=== PATIENT | female | born 1935 | race Caucasian/White ===

== ENCOUNTER → 2024-02-29 13:50 | Outpatient (REF) | payer MEDICARE, OTHER, SELFPAY | LOC: DHVS 13:50 | PROVIDERS: ATTENDING PHYSICIAN Surgery Vascular Surgery; FAMILY PHYSICIAN Family Medicine | DX: I73.9 Peripheral vascular disease, unspecified (principal) | CPT/HCPCS: 93922; 93925 ==

== ENCOUNTER 2024-06-25 21:17 | Inpatient (IN) | payer MEDICARE, OTHER, SELFPAY ==
[2024-06-25] VITALS (7 sets, daily range): BP systolic 119–164; BP diastolic 55–70; BMI 18.5; BMI 15.5
--- NOTE | 2024-06-25 16:51 | ED.GENMED ---
History of Present Illness
<THAO Kirby Last Filed: 06/25/24 22:13>
General
Chief Complaint: Fall
Source: patient
Exam Limitations: none
Time Seen by Provider: 06/25/24 16:51
Nursing documentation reviewed up to this point in time: agreed with
History of Present Illness
History of Present Illness:
This is a 89-year-old female with a history of DVT on Eliquis, hypertension, hyperlipidemia, hypothyroidism presenting emergency department today with concerns of right hip pain with weightbearing following a fall. She also complains of right flank
pain. Patient states that she was in her own space and uses a walker at baseline. Patient states that she was trying to wean herself off of her walker but when attempting this, she tripped and fell onto her right side. Patient states that she did
not hit her head when she fell. Patient denies any loss of consciousness, headache, head trauma, neck pain, dizziness, lightheadedness. Patient [place] any neck pain. Patient states that she tried getting up on her own but noticed pain in her right
hip when bearing weight. 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 Patient had this amputation because of an infection of the lower extremity in
the past. Patient has no history of diabetes.
Past History
<THAO Kirby Last Filed: 06/25/24 22:13>
Past History
ED Past Medical History: HTN, Hypothyroidism, Psychiatric (Anxiety, Depression) and Other (Migraine, DVT, acute arterial occlusion, peripheral vascular disease)
ED Past Surgical History: Other (Left Thrombectomy, Right arteriogram)
Social History
Tobacco: Former smoker
Alcohol: Daily (wine 1 glass)
Personal:
Living: with family
Review of Systems
<THAO Kirby Last Filed: 06/25/24 22:13>
Review of Systems
All Other Systems: ROS reviewed and negative except as documented in HPI and ROS
Phy Exam
<Ilda Pina PA-C - Last Filed: 06/25/24 22:13>
Physical Exam
Physical Exam:
General: Patient is well appearing and in no acute distress; non-toxic
Skin: Warm and dry, no rashes or lesions
Head: Normocephalic, atraumatic. No palpable hematoma of the scalp. No tenderness to palpation of the facial bones, TMJ joints intact bilaterally.
Eyes: Sclera non-icteric. EOMs intact. PERRLA. No entrapment.
Neck: Patient seen spontaneously moving cervical spine. No bony tenderness to palpation of the cervical spine.
Cardiac: Regular rate and rhythm, no murmurs. No tenderness to palpation of the external chest wall.
Peripheral Vascular: No lower extremity swelling or edema.
Pulm: Normal respiratory effort, no wheezes, rales, or rhonchi
Abdomen: No abdominal tenderness to palpation. No areas of ecchymosis or signs of trauma. No CVA tenderness bilaterally.
Musculoskeletal: No hip pain with passive range of motion. No tenderness to palpation of the right hip.
Neuro: CN II-XII intact, no focal neurologic deficits.
Psychiatric: Appropriate mood and affect.
Course
<Ilda Pina PA-C - Last Filed: 06/25/24 22:13>
Orders/Labs/Results
Orders:
Orders
06/25/24 17:25
CT Abd/pel W Iv Cont (trauma) Urgent
Comment:
Reason For Exam: right sided flank pain, hip pain following fall el
06/25/24 17:38
Basic Metabolic Panel Urgent
Complete Blood Count/With Diff Urgent
PTT Urgent
Prothrombin Time Urgent
06/25/24 17:57
Comprehensive Metabolic Panel Urgent
06/25/24 18:24
Acetaminophen [Tylenol] 650 mg PO NOW STA
06/25/24 19:33
CR Femur - Right Min 2 Vw Urgent
Comment:
Reason For Exam: right proximal femur pain
06/25/24 20:41
Prothrombin Complex(Pcc),Human [Kcentra] 1,063 unit Empty Viaflex Container 100 ml [Viaflex Empty Container] 40 ml IV NOW
Does patient have a dx of serious acute active bleeding?: Yes
Does patient have prior history of HIT?: No
06/25/24 20:55
Admit/Transfer Patient As Directed
Co-Sign Provider:
Level of Care: Inpatient admission
Assign to:: Medical/Surgical
Physician / Group: [facility]
Diagnosis: fall
Reason for Hospitalization: superolateral right gluteus medius muscle
Expected length of stay greater than two midnights?: Yes
ELOS- Estimated Length of Stay in days: 4
I certify the patient meets the requirements for IP care: Yes
PRN Pain Medication Management As Directed
May give lesser potent ordered pain med per pt: Yes
preference::
Protocol:: Medication orders for pain may be administered in a
manner that supports deferring to patient preference
when the pt is:
- Requesting an ordered lesser potent pain medication.
Least to most potent pain medications are defined
as: acetaminophen < NSAID < tramadol < opioids
(morphine, oxycodone, hydromorphone).
- Requesting a lesser dose of the same medication IF
ORDERED.
- Requesting a less intrusive route of administration
if both routes are prescribed by the provider (PO <
IV).
06/25/24 20:57
Code Status As Directed
Resuscitation Status: Full Code
Abnormal Lab Results
06/25/24 06/25/24
17:38 17:57
RBC 3.92 L 10^6/uL
(4.20-5.40)
MCH 32.9 H pg
(27.0-31.0)
MPV 10.9 H fL
(7.4-10.4)
Abs Immat Gran (auto) 0.1 H 10^3/uL
(0-0.05)
Absolute Neuts (auto) 7.7 H 10^3/uL
(1.4-6.5)
Immature Gran % 1.1 H %
(0-0.5)
Neutrophils % 78.9 H %
(42.2-75.2)
Lymphocytes % 13.2 L %
(20.5-51.1)
PT 15.0 H Sec
(11.4-14.6)
APTT 22.3 L Sec
(23.4-35.0)
BUN 21 H mg/dl 20 H mg/dl
(7-17) (7-17)
Glucose 118 H mg/dl 106 H mg/dl
(70-99) (70-99)
ALT 38 H U/L
(0-35)
Total Protein 5.9 L g/dl
(6.3-8.2)
06/25/24 17:38
06/25/24 17:57
Vital Signs
Initial and Last Documented VS:
Initial Vital Signs
Pulse Ox
97
06/25/24 16:56
Last Documented Vital Signs
Temp Pulse Resp BP Pulse Ox
98.5 F 74 23 144/63 96
06/25/24 16:59 06/25/24 21:45 06/25/24 21:45 06/25/24 21:00 06/25/24 21:45
<Keith Warner MD - Last Filed: 06/25/24 22:16>
Orders/Labs/Results
Orders:
Orders
06/25/24 17:25
CT Abd/pel W Iv Cont (trauma) Urgent
Comment:
Reason For Exam: right sided flank pain, hip pain following fall el
06/25/24 17:38
Basic Metabolic Panel Urgent
Complete Blood Count/With Diff Urgent
PTT Urgent
Prothrombin Time Urgent
06/25/24 17:57
Comprehensive Metabolic Panel Urgent
06/25/24 18:24
Acetaminophen [Tylenol] 650 mg PO NOW STA
06/25/24 19:33
CR Femur - Right Min 2 Vw Urgent
Comment:
Reason For Exam: right proximal femur pain
06/25/24 20:41
Prothrombin Complex(Pcc),Human [Kcentra] 1,063 unit Empty Viaflex Container 100 ml [Viaflex Empty Container] 40 ml IV NOW
Does patient have a dx of serious acute active bleeding?: Yes
Does patient have prior history of HIT?: No
06/25/24 20:55
Admit/Transfer Patient As Directed
Co-Sign Provider:
Level of Care: Inpatient admission
Assign to:: Medical/Surgical
Physician / Group: [facility]
Diagnosis: fall
Reason for Hospitalization: superolateral right gluteus medius muscle
Expected length of stay greater than two midnights?: Yes
ELOS- Estimated Length of Stay in days: 4
I certify the patient meets the requirements for IP care: Yes
PRN Pain Medication Management As Directed
May give lesser potent ordered pain med per pt: Yes
preference::
Protocol:: Medication orders for pain may be administered in a
manner that supports deferring to patient preference
when the pt is:
- Requesting an ordered lesser potent pain medication.
Least to most potent pain medications are defined
as: acetaminophen < NSAID < tramadol < opioids
(morphine, oxycodone, hydromorphone).
- Requesting a lesser dose of the same medication IF
ORDERED.
- Requesting a less intrusive route of administration
if both routes are prescribed by the provider (PO <
IV).
06/25/24 20:57
Code Status As Directed
Resuscitation Status: Full Code
Abnormal Lab Results
06/25/24 06/25/24
17:38 17:57
RBC 3.92 L 10^6/uL
(4.20-5.40)
MCH 32.9 H pg
(27.0-31.0)
MPV 10.9 H fL
(7.4-10.4)
Abs Immat Gran (auto) 0.1 H 10^3/uL
(0-0.05)
Absolute Neuts (auto) 7.7 H 10^3/uL
(1.4-6.5)
Immature Gran % 1.1 H %
(0-0.5)
Neutrophils % 78.9 H %
(42.2-75.2)
Lymphocytes % 13.2 L %
(20.5-51.1)
PT 15.0 H Sec
(11.4-14.6)
APTT 22.3 L Sec
(23.4-35.0)
BUN 21 H mg/dl 20 H mg/dl
(7-17) (7-17)
Glucose 118 H mg/dl 106 H mg/dl
(70-99) (70-99)
ALT 38 H U/L
(0-35)
Total Protein 5.9 L g/dl
(6.3-8.2)
06/25/24 17:38
06/25/24 17:57
Vital Signs
Initial and Last Documented VS:
Initial Vital Signs
Pulse Ox
97
06/25/24 16:56
Last Documented Vital Signs
Temp Pulse Resp BP Pulse Ox
98.5 F 74 23 144/63 96
06/25/24 16:59 06/25/24 21:45 06/25/24 21:45 06/25/24 21:00 06/25/24 21:45
<Ilda Pina PA-C - Last Filed: 06/25/24 22:13>
MDM/Problems Addressed
Differential Diagnosis Includes:
ddx include hip fracture, hip contusion, retroperitoneal hematoma, musculoskeletal sprain/strain
MDM/Problems Addressed:
Hip pain following fall:
This is a 89-year-old female with a history of DVT on Eliquis, hypertension, hyperlipidemia, hypothyroidism presenting emergency department today with concerns of right hip pain with weightbearing following a fall. She also complains of right flank
pain. Patient states that she was in her own space and uses a walker at baseline. Patient states that she was trying to wean herself off of her walker but when attempting this, she tripped and fell onto her right side.
Patient is well appearing on exam, no acute distress. No signs of head trauma. She has no tenderness to palpation of the cervical spine, non-focal neurologic exam. CT of the abdomen/pelvis reveals focal area of active bleeding involving the
superolateral right gluteus medius muscle. Discussed findings with interventional radiology and vascular surgery. Based on IR recommendations, will hold Eliquis no indication for IR intervention at this time. Patient will be admitted for further
care and workup. Patient in agreement with plan.
Chronic conditions affecting care:
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
<Ilda Pina PA-C - Last Filed: 06/25/24 22:13>
*Pulse Oximetry
Patient hypoxic: no
*Critical Care Note
Total Time (30-74mins, 75-104mins- exclusive of procedures): Not Applicable
Data Reviewed
Review of Other/Old Records Reveals: Records (reviewed ER physician documentation from 09/07/23 where patient was seen for an orbital blow out fracture) and Discharge Summary (reviewed discharge summary from 06/10/23)
Source: patient and records
Prescriptions/Medications Considered But Not Given:
Patient denying medication for pain at this time
<Ilda Pina PA-C - Last Filed: 06/25/24 22:13>
Patient Management
Escalation/DeEscalation of care consider admission/obs:
Patient referred for admission. Case and treatment plan reviewed with my attending Dr. Warner.
ED Attending Note
<Ilda Pina PA-C - Last Filed: 06/25/24 22:13>
-
Portions of this chart may have been created with voice recognition software.� Occasional wrong word or��sound alike� substitutions may have occurred due to the inherent limitations of voice recognition software.
<Keith Warner MD - Last Filed: 06/25/24 22:16>
ED Attending Note
ED Attending Note:
I saw and evaluated patient independently. Patient had a mechanical fall causing severe right lower back and gluteal pain. She is well-appearing on exam and demonstrates no signs of hemorrhagic shock. CT scan with active gluteal bleed noted. She
has an nonexpanding hematoma that is on her right buttock. She is on Eliquis for a remote DVT 20 years ago. Last dose was this morning around 8 AM. Given active hemorrhage seen on CT scan, will reverse her Eliquis with 4 factor PCC. IR consulted
who agreed with plan.
Discharge Plan
Departure
Patient Disposition: Admit
Date of Disposition: 06/25/24
Time of Disposition: 20:26
Admit to: Med/Surg
Presentation/result/management discussed w/ accepting MD/DO: Hospitalist
Patient with high blood pressure during this ER visit?: No
Condition: Fair
Discharge Problem:
Traumatic hemorrhage, Fall
Interventions
Interventions:
*Risk Screen - Suicide Last Done: 06/25/24 17:19
*General Assessment Last Done: 06/25/24 17:19
*Neglect/Abuse Screening Last Done: 06/25/24 17:19
ED- Fall Risk Assessment Last Done: 06/25/24 17:22
*ED COVID-19 Vaccine History Last Done: 06/25/24 17:19
*Nursing Disposition Last Done: 06/25/24 22:00
ED-Musculoskeletal Assessment Last Done: 06/25/24 17:22
ED- Neurological Assessment Last Done: 06/25/24 17:22
ED-Skin Assessment Last Done: 06/25/24 17:22
Discharge Date and Time
Discharge Date/Time: 06/25/24 22:01
[2024-06-25 17:46] LABS: % Basophils 0.3 % (0-2); % Eosinophils 0.1 % (0-6); % Immature Granulocytes 1.1 % (0-0.5); % Lymphocytes 13.2 % (20.5-51.1); % Monocytes 6.4 % (1.7-9.3); % Neutrophils 78.9 % (42.2-75.2); Absolute Immature Granulocytes 0.1 10^3/uL (0-0.05); Absolute Lymphocytes 1.3 10^3/uL (1.2-3.4); Absolute Monocytes 0.6 10^3/uL (0.1-0.6); Absolute Neutrophils 7.7 10^3/uL (1.4-6.5); Hematocrit 37.5 % (37.0-47.0); Hemoglobin 12.9 g/dL (12.0-16.0); Mean Corp Hgb Conc. 34.4 g/dL (33.0-37.0); Mean Corpuscular Hgb 32.9 pg (27.0-31.0); Mean Corpuscular Volume 95.7 fL (81.0-99.0); Mean Platelet Volume 10.9 fL (7.4-10.4); Nucleated Red Blood Cells % 0 %; Platelet Count 249 10^3/uL (130-400); Red Blood Cell Count 3.92 10^6/uL (4.20-5.40); Red Cell Dist. Width 12.8 % (11.5-14.5); White Blood Cell Count 9.7 10^3/uL (4.8-10.8)
[2024-06-25 17:58] LABS: APTT 22.3 Sec (23.4-35.0)
[2024-06-25 18:06] LABS: Blood Urea Nitrogen 21 mg/dl (7-17); Calcium 9.9 mg/dl (8.4-10.2); Carbon Dioxide 26 mmol/L (22-30); Chloride 105 mmol/L (98-107); Estimated Creatinine Clearance 38 ml/min; Glucose 118 mg/dl (70-99); Sodium 141 mmol/L (135-145); eGFR > 60.00
[2024-06-25 18:21] LABS: ALT (SGPT) 38 U/L (0-35); AST (SGOT) 28 U/L (14-36); Albumin 3.8 g/dl (3.5-5.0); Alkaline Phosphatase 72 U/L (38-126); Blood Urea Nitrogen 20 mg/dl (7-17); Calcium 9.6 mg/dl (8.4-10.2); Carbon Dioxide 28 mmol/L (22-30); Chloride 106 mmol/L (98-107); Estimated Creatinine Clearance 45 ml/min; Glucose 106 mg/dl (70-99); Potassium 3.7 mmol/L (3.5-5.1); Sodium 141 mmol/L (135-145); Total Bilirubin 0.5 mg/dl (0.2-1.3); Total Protein 5.9 g/dl (6.3-8.2); eGFR > 60.00
[2024-06-25] MEDS: TYLENOL 650 MG PO (18:32)
--- NOTE | 2024-06-25 20:38 | HPS.HSE ---
Family Physician
-
Family Physician: Minh Mcallister
Chief Complaint
-
Mechanical fall and pain in the right lower quadrant area
History of Present Illness
Pleasant 89-year-old female who lives independently alone with known history of hypertension, right below knee amputation: Using prosthesis, presented to the hospital after had a mechanical fall earlier today at home, admitted lately she has been
using walker with a prosthesis and look like she lost balance today and fell to the ground hitting the right side, did not any symptomatic dizziness or palpitation or syncope prior to the fall, denies any weakness or numbness in extremities,
Denies hitting his head to the ground.
Admits she has been taking blood thinner for 30-year for history of DVT currently on Eliquis.
In the ER workup showed no fracture or dislocation of the right hip area including an x-ray and CT abdominal pelvis which showed superolateral right gluteus medius muscle, ER physician they spoke to IR and vascular surgery recommended against of any
intervention like embolization while they recommend reversing Eliquis, Kcentra already ordered.
Patient awake, alert and oriented and can hold appropriate conversation.
Medical History
Past Medical History
Past Medical History: Reports Other
Additional Past Medical History:
Past medical history reviewed:
Hypertension
Mood disorder
History of DVT and PE and anticoagulation for 30 years
Peripheral vascular disease status post right below-knee amputation
Mood disorder
ORIF right femoral neck
Social history: Lives alone at home denies smoking or alcohol use.
Family history: Reviewed and noncontributory
Past Surgical History: Reports Other
Social History
Unable to obtain full social history at this time due to: Other
Family History
Family History: Other
Allergies / Home Medications
Allergies reflects when Allergies were last updated in [facility].
Home Medications with original date entered in [employer]
Allergy/Medication List:
Allergies
Allergy/AdvReac Type Severity Reaction Status Date / Time
No Known Allergies Allergy Verified 09/07/23 09:06
Home Medications
aspirin 81 mg capsule 81 mg PO HS Blood clot prevention/tx 08/26/22
benazepril 40 mg tablet 40 mg PO DAILY Blood pressure 08/26/22
bupropion HCl 150 mg 24 hr tablet, extended release 150 mg PO DAILY Mental Health/Anxiety 08/26/22
cholecalciferol (vitamin D3) 25 mcg (1,000 unit) tablet (Vitamin D3) 25 mcg PO DAILY Supplement 08/26/22
coQ10 (ubiquinol) 100 mg capsule 500 mg PO DAILY Supplement 08/26/22
apixaban 5 mg tablet (Eliquis) 5 mg PO BID Blood Clot Prevention/Tx 10/03/22
calcium carbonate (Oyster Shell Calcium 500) 500 mg PO DAILY #1 tab 10/03/22
escitalopram oxalate 20 mg tablet 20 mg PO DAILY Mental Health/Anxiety #30 tabs 10/15/22
ferrous sulfate 325 mg (65 mg iron) tablet 325 mg PO DAILY #30 tabs 10/15/22
amlodipine 10 mg tablet 10 mg PO DAILY Blood Pressure 06/07/23
ascorbic acid (vitamin C) 500 mg tablet (Vitamin C) 500 mg PO DAILY Supplement 06/07/23
buspirone 5 mg tablet 20 mg PO BID Depression 06/07/23
omega 2-enx-vnc-fish oil 1,000 mg (120 mg-180 mg) capsule (Fish Oil) 1 cap PO DAILY High Cholesterol 06/07/23
prednisone 1 mg tablet 2 mg PO DAILY Anti-Inflammatory 06/07/23
prednisone 5 mg tablet 10 mg PO DAILY Anti-Inflammatory 06/07/23
vitamins A,C,G-giwz-lmtpfu 2,148 mcg-113 mg-45 mg-17.4 mg tablet (PreserVision AREDS) 1 tab PO BID Supplement 06/07/23
oxycodone 5 mg tablet 5 mg PO Q4HPRN PRN severe pain #15 tabs 06/09/23
amoxicillin 875 mg-potassium clavulanate 125 mg tablet 1 tab PO BID #14 tabs 09/07/23
Review of Systems
-
A 12 point ROS was completed and negative except as noted: Yes
Physical Exam
Vital Signs
Vital Signs
Temp Pulse Resp BP Pulse Ox
98.5 F 84 15 146/64 97
06/25/24 16:59 06/25/24 16:59 06/25/24 16:59 06/25/24 17:00 06/25/24 17:15
Physical exam:
General: Awake, alert and oriented x3, not in distress and holds appropriate conversation.
HEENT: No active discharge, ecchymosis or bruising, moist lips, tongue and mucous membrane.
Eyes: No discharge or red conjunctiva, no nystagmus, pupils are reactive and equal
Neck:Supple, no JVD no bruit no goiter.
Respiratory: Normal AP contour and diameter, normal chest wall movement, normal respiratory effort, no respiratory distress,
Lungs: Good air entry bilaterally, no wheezing or rhonchi, no rales or crackles
Heart: S1, S2 regular, normal rate, no added sound.
Gastrointestinal: Positive bowel sounds, soft, right lower quadrant tenderness with no guarding or rigidity or organomegaly
Musculoskeletal: Right below-knee amputation, no chest wall abnormality or tenderness. All other joints and extremities have good range of motion, no muscle tenderness or any joint swelling or tenderness.
Extremities: No pitting edema, good peripheral pulses, good range of motion
Skin: Warm and dry, no ulceration, normal color.
Neurological: Awake, alert and oriented x3, speech clear and comprehensive speech clear and comprehensive, good muscle tone.
Psychiatric: Normal mood, normal thought and judgment, normal affect,
Physical Exam
General: Other
Laboratory Results
-
06/25/24 17:38
06/25/24 17:57
Laboratory Results
PT 15.0 Sec (11.4-14.6) H 06/25/24 17:38
INR 1.20 06/25/24 17:38
APTT 22.3 Sec (23.4-35.0) L 06/25/24 17:38
Total Bilirubin 0.5 mg/dl (0.2-1.3) 06/25/24 17:57
AST 28 U/L (14-36) 06/25/24 17:57
ALT 38 U/L (0-35) H 06/25/24 17:57
Alkaline Phosphatase 72 U/L (38-126) 06/25/24 17:57
hip x-ray: No evidence for acute fracture or dislocation.
CT abdominal pelvis:Coronary artery calcifications are present. Please correlate with symptoms of and risk factors for coronary artery disease, with further workup as clinically appropriate.
Focal area of active bleeding involving the superolateral right gluteus medius muscle.
No convincing CT evidence for acute fracture.
Large multilobulated cystic mass occupying the tail and body of the pancreas.
Data Reviewed
-
Diagnostic Radiology: Report Reviewed by me and Discussed with Patient
CT Scan: Report Reviewed by me and Discussed with Patient
Lab Data: Labs Reviewed by me and Discussed with Patient
Old Records: Reviewed
Impression/Plan
-
IMPRESSION:
89-year-old female who lives independently alone with known history of right below-knee amputation presented to the hospital after mechanical fall at home while lost balance walking with a walker, workup in ER showed superolateral right gluteus
medius muscle, IR and vascular surgery recommended reversing Eliquis but no need for intervention.
superolateral right gluteus medius muscle: Secondary to mechanical fall while on anticoagulation.
Kcentra was already ordered
Hemoglobin is stable
Recheck lab
Pain medication, patient Tylenol did not help we will try Ultram 50 mg every 6 hours as needed as she is can hesitant to use stronger medication.
It is PT OT when her pain is better controlled
Hypertension: Continue amlodipine and BenzePrO and monitor vital sign closely.
Peripheral vascular disease no history of the right leg amputation.
History of DVT: On Eliquis ON hold for now
Showed a single episode of DVT according to the patient 30 years ago
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
All discussed with the patient in detail expressed understanding
CODE STATUS full code
DVT prophylaxis SCD for significant to be on the left leg only, free pharmacological anticoagulation because of bleeding
[2024-06-25] MEDS: KCENTRA 40 UNIT IV (21:05)
[2024-06-25] MEDS: ULTRAM 50 MG PO (23:18)
[2024-06-25] MEDS: DELTASONE 7 MG PO (23:51)
--- NOTE | 2024-06-26 00:06 | PTCARENOTE ---
Pt. arrived from ED via stretcher. Pt. pulled over from stretcher to bed on . Patient is AAO X3, right BKA, prosthetic in room. Medications administered, oriented to unit, call gusman within reach, will continue to monitor.
[2024-06-26] MEDS: TYLENOL 650 MG PO ×3 (00:24→14:22)
[2024-06-26 07:00] VITALS: BP 138/87
[2024-06-26 07:40] LABS: Hematocrit 30.7 % (37.0-47.0); Hemoglobin 10.6 g/dL (12.0-16.0); Mean Corp Hgb Conc. 34.5 g/dL (33.0-37.0); Mean Corpuscular Hgb 32.5 pg (27.0-31.0); Mean Corpuscular Volume 94.2 fL (81.0-99.0); Mean Platelet Volume 10.8 fL (7.4-10.4); Platelet Count 207 10^3/uL (130-400); Red Blood Cell Count 3.26 10^6/uL (4.20-5.40); Red Cell Dist. Width 12.7 % (11.5-14.5); White Blood Cell Count 9.9 10^3/uL (4.8-10.8)
[2024-06-26] MEDS: BUSPAR 20 MG PO ×2 (07:46→19:51)
[2024-06-26] MEDS: LEXAPRO 20 MG PO (07:47)
[2024-06-26] MEDS: NORVASC 10 MG PO (07:47)
[2024-06-26] MEDS: WELLBUTRIN XL (24 hour extended release) 150 MG PO (07:48)
[2024-06-26] MEDS: ZESTRIL 40 MG PO (07:49)
[2024-06-26 08:22] LABS: Blood Urea Nitrogen 20 mg/dl (7-17); Carbon Dioxide 29 mmol/L (22-30); Chloride 102 mmol/L (98-107); Estimated Creatinine Clearance 42 ml/min; Glucose 128 mg/dl (70-99); Potassium 4.4 mmol/L (3.5-5.1); Sodium 138 mmol/L (135-145); eGFR > 60.00
--- NOTE | 2024-06-26 08:41 | W.PN.HOSP.TC ---
Addendum entered and electronically signed by Sourav Anderson MD 06/26/24 13:20:
Also reached out to general surgery and vascular surgery and they recommend conservative management and they do not need to be involved at this juncture.
Original Note:
Today's Communication/Plan
-
Monitor hemoglobin. PT OT.
Assessment / Plan
Assessment / Plan
Physical exam:
General: Acutely ill
HEENT: Normocephalic, Atraumatic and Moist Mucous Membranes
Respiratory: Clear to Auscultation; Negative Wheezes, Rales or Rhonchi
Cardiac: Regular Rhythm and S1/S2
GI: Soft, mild tender and Nondistended
Musculoskeletal: Tenderness of the lumbar area. Multiple bruises. Right BKA. No Clubbing, No Cyanosis and No Edema
Neuro: Awake, Alert and Oriented, no gross neuro-deficits
Psych: Calm
A/P:
Gluteus medius hematoma, after traumatic fall and on anticoagulation:
Continue hold Eliquis (last dose 06/25 morning)
Status post Kcentra in the ED
Continue monitor hemoglobin
Pain control
PT OT eval
Acute blood loss anemia:
Hemoglobin 10.6 today from 12.9 upon admission
Likely related to hematoma as above
Continue to monitor hemoglobin until stabilization
Blood transfusion if required
Pancreatic cystic mass:
GI consult-[place] texted GI today
Patient tells me she has not seen GI as outpatient rather she has discussed with PCP.
Hypertension:
Continue home antihypertensives, lisinopril and amlodipine.
Monitor blood pressure and adjust medications accordingly.
Polymyalgia rheumatica:
Steroids dependent
PVD:
Stable
Status post right BKA in the past with prosthesis.
DVT:
Hold anticoagulant due to hematoma
Depression anxiety:
Continue escitalopram and bupropion and buspirone
DVT prophylaxis-SCDs
CODE STATUS-full code
Anticipated Discharge: 24 - 48 hours
Subjective/Interval History
-
Date of Service: June 26, 2024
Patient still having lower back pain and abdominal discomfort. No chest pain or shortness of breath.
Objective Data
-
Labs:
Laboratory Results
06/26/24
06:40
WBC 9.9
Hgb 10.6 L
Hct 30.7 L
Plt Count 207
Sodium 138
Potassium 4.4
Chloride 102
Carbon Dioxide 29
BUN 20 H
Creatinine 0.6
Glucose 128 H
Calcium 9.0
Vital Signs:
Vital Signs
Temp Pulse Resp BP Pulse Ox
98.2 F 67 14 138/87 95
06/26/24 07:00 06/26/24 07:47 06/26/24 07:00 06/26/24 07:47 06/26/24 07:00
I&O
06/25/24 06/26/24 06/27/24
06:59 06:59 06:59
Intake Total 0 / 0
Output Total 50 / 50
Balance -50 / -50
[2024-06-26 12:03] VITALS: BP 102/56; BP 112/54; BP 91/50; PULSE 89; PULSE 95; O2SAT 98; O2SAT 99
[2024-06-26 12:09] VITALS: BMI 15.5
--- NOTE | 2024-06-26 12:18 | CON.GI ---
Addendum entered and electronically signed by Karma Maurer MD 06/26/24 17:27:
I saw and examined the patient.
The WRITER PRODUCER or PA's note was reviewed and I agree with the note.
Comment:
this pt is a 89 y/o woman with a hx of a fall and anticoagulation. She had an incidental pancreatic cystic lesion found on her CT. She states she has a hx of this and has been on creon in the past (though stopped due to a side effects). She will
be seeing [facility] to follow this lesion.
abd: soft, nondistended
impression
pancreatic cystic lesion
plan:
ok for outpatient evaluation with [facility]
will sign off call with questions
Addendum entered and electronically signed by EVARISTO Blum 06/26/24 14:18:
reviewed PCP note from 04/18/2024 noted ' pancreas replaced by cyst'on CT 12/2023 no solid mass. Started on creon for diarrhea during that visit.
Original Note:
Consultation
-
Date/Time Consultation Requested: 06/26/24 1145
Date/Time Consultation Performed: 06/26/24 1230
Requesting Provider: Sourav Anderson MD
Performing Provider: EVARISTO Garcia, Karma Maurer MD
Reason for Consultation: back pain , pancreatic cyst
Medical History
Chief Complaint / HPI
Chief Complaint: back pain
History of Present Illness:
Pt is an 89yo with hx HTN, PVD with right BKA, DVT/PE with chronic anticoagulation, mood disorder, hypothyroidism, PAD, migraines with mechanical fall with focal area of active bleeding superolateral right gluteus medius muscle. Pt also noted
with large multilobulated cystic mass in tail and body of pancreas and back pain and asked to evaluate. In reviewing with patient noted with hx cystic lesion over last few months. She recall recent MRI and [facility] and believes she is scheduled
with pancreatic specialist. She also recently started creon for diarrha but held with some bleeding but resumed after realizing bleeding was from lips. She also admits to some nausea this AM possible medication related. She denies abdominal pain,
constipation, blood or black in stools. Pt with hx colonoscopy 50 + years ago but denies hx EGD or EUS.
Past Medical History
Past Medical History: HTN, Hypothyroidism, Psychiatric (mood disorder, anxiety, depression) and Other (DVT/PE on anticoagulation, PVD s/p right BKA,migraines, anemia, hearing impairment, PMR)
Past Surgical History: Orthopedic (ORIF right femoral neck)
Social History
Tobacco: Former Smoker
Alcohol: Occasional (daily wine quit a few months ago with pancreatic issue )
Drug: None
Living: Alone
Employment: Retired
Family History
Family History: Other (father with ? hx pancreatic Cancer )
Allergies / Home Medications
Allergy/AdvReac Type Severity Reaction Status Date / Time
No Known Allergies Allergy Verified 09/07/23 09:06
�Medication �Instructions �Recorded
aspirin 81 mg capsule 81 mg PO HS Blood clot 08/26/22
prevention/tx
benazepril 40 mg tablet 40 mg PO DAILY Blood pressure 08/26/22
bupropion HCl 150 mg 24 hr tablet, 150 mg PO DAILY Mental 08/26/22
extended release Health/Anxiety
cholecalciferol (vitamin D3) 25 25 mcg PO DAILY Supplement 08/26/22
mcg (1,000 unit) tablet (Vitamin
D3)
coQ10 (ubiquinol) 100 mg capsule 500 mg PO DAILY Supplement 08/26/22
apixaban 5 mg tablet (Eliquis) 5 mg PO BID Blood Clot 10/03/22
Prevention/Tx
calcium carbonate (Oyster Shell 500 mg PO DAILY #1 tab 10/03/22
Calcium 500)
escitalopram oxalate 20 mg tablet 20 mg PO DAILY Mental 10/15/22
Health/Anxiety #30 tabs
ferrous sulfate 325 mg (65 mg 325 mg PO DAILY #30 tabs 10/15/22
iron) tablet
amlodipine 10 mg tablet 10 mg PO DAILY Blood Pressure 06/07/23
ascorbic acid (vitamin C) 500 mg 500 mg PO DAILY Supplement 06/07/23
tablet (Vitamin C)
buspirone 5 mg tablet 20 mg PO BID Depression 06/07/23
omega 4-pcv-hdd-fish oil 1,000 mg 1 cap PO DAILY High Cholesterol 06/07/23
(120 mg-180 mg) capsule (Fish Oil)
prednisone 1 mg tablet 2 mg PO DAILY Anti-Inflammatory 06/07/23
prednisone 5 mg tablet 10 mg PO DAILY Anti-Inflammatory 06/07/23
vitamins A,C,W-icbv-gjwtxd 2,148 1 tab PO BID Supplement 06/07/23
mcg-113 mg-45 mg-17.4 mg tablet
(PreserVision AREDS)
oxycodone 5 mg tablet 5 mg PO Q4HPRN PRN severe pain #15 06/09/23
tabs
amoxicillin 875 mg-potassium 1 tab PO BID #14 tabs 09/07/23
clavulanate 125 mg tablet
Review of Systems
-
History Source: Patient
Constitutional: Reports No Symptoms
EENT: Reports No Symptoms
Respiratory: Reports No Symptoms
Abdomen/GI: Reports Nausea and Diarrhea
: Reports No Symptoms
Musculoskeletal: Reports Other (back pain with right side bruising, right BKA)
Skin: Reports No Symptoms
Neurological: Reports Headache
Endocrine: Reports No Symptoms
Hematologic/Lymphatic: Reports Bleeding
Vital Signs
Temp Pulse Resp BP Pulse Ox
98.2 F 67 14 138/87 95
06/26/24 07:00 06/26/24 07:47 06/26/24 07:00 06/26/24 07:47 06/26/24 10:34
Physical Exam
Exam
General: Well Developed, Well Nourished and No Apparent Distress
HEENT: Normocephalic and Anicteric
Respiratory: Clear
Cardiac: Regular Rhythm
GI: Soft, Non Tender and Non Distended
Genito-urinary: No Costovertebral Tender
Musculoskeletal: Other (right flank, hip and upper leg bruising )
Neuro: Awake, Alert and AO x 3
Psych: Calm
Results
WBC 9.9 10^3/uL (4.8-10.8) 06/26/24 06:40
Hgb 10.6 g/dL (12.0-16.0) L 06/26/24 06:40
Hct 30.7 % (37.0-47.0) L 06/26/24 06:40
MCV 94.2 fL (81.0-99.0) 06/26/24 06:40
Plt Count 207 10^3/uL (130-400) 06/26/24 06:40
Absolute Neuts (auto) 7.7 10^3/uL (1.4-6.5) H 06/25/24 17:38
PT 15.0 Sec (11.4-14.6) H 06/25/24 17:38
INR 1.20 06/25/24 17:38
APTT 22.3 Sec (23.4-35.0) L 06/25/24 17:38
Sodium 138 mmol/L (135-145) 06/26/24 06:40
Potassium 4.4 mmol/L (3.5-5.1) 06/26/24 06:40
Chloride 102 mmol/L (98-107) 06/26/24 06:40
Carbon Dioxide 29 mmol/L (22-30) 06/26/24 06:40
BUN 20 mg/dl (7-17) H 06/26/24 06:40
Creatinine 0.6 mg/dL (0.6-1.0) 06/26/24 06:40
Calcium 9.0 mg/dl (8.4-10.2) 06/26/24 06:40
Total Bilirubin 0.5 mg/dl (0.2-1.3) 06/25/24 17:57
AST 28 U/L (14-36) 06/25/24 17:57
ALT 38 U/L (0-35) H 06/25/24 17:57
Alkaline Phosphatase 72 U/L (38-126) 06/25/24 17:57
Diagnostic Image Results:
06/25/24 CT A/p with IV contrast --
IMPRESSION: Coronary artery calcifications are present. Please correlate with symptoms of and risk factors for coronary artery disease, with further workup as clinically appropriate.
Focal area of active bleeding involving the superolateral right gluteus medius muscle.
No convincing CT evidence for acute fracture.
Large multilobulated cystic mass occupying the tail and body of the pancreas.
There is a large multilobulated cystic mass occupying the tail and body of the pancreas. This mass measures approximately 11.2 cm transverse by 4.9 cm AP by 5.4 cm craniocaudal. The mass does not appear to extend into the head of the pancreas.
However, within the head of the pancreas, there are several other small round cystic foci, measuring up to 1.5 cm in diameter.
Main differential considerations would include mucinous cystic neoplasm of the pancreas, intraductal papillary mucinous neoplasm, and serous cystadenoma. There are no previous imaging examinations of the abdomen at this institution. If the patient
has prior imaging elsewhere, comparison to that imaging would be useful. If there are no comparison examinations available, consideration could be given to follow-up imaging with suggested initial timeframe of 6 months. This could be performed with
CT of the abdomen and could be performed as an unenhanced or enhanced exam, depending on renal function.
Prior GI Procedures:
EGD: none
Colonoscopy: ? 50 years ago
Assessment / Plan
-
Pt is an 89yo with hx HTN, PVD with right BKA, DVT/PE with chronic anticoagulation, mood disorder, hypothyroidism, PAD, migraines with mechanical fall with focal area of active bleeding superolateral right gluteus medius muscle. Pt also noted
with large multilobulated cystic mass in tail and body of pancreas and back pain and asked to evaluate. In reviewing with patient noted with hx cystic lesion over last few months. She recall recent MRI and [facility] and believes she is scheduled
with pancreatic specialist. She also recently started Creon for diarrhea but held with some bleeding but resumed after realizing bleeding was from lips. She also admits to some nausea this AM possible medication related. She denies abdominal
pain, constipation, blood or black in stools. Pt with hx colonoscopy 50 + years ago but denies hx EGD or EUS.
-abnormal CT Large multilobulated cystic mass occupying the tail and body of the pancreas
-s/p fall with focal area of active bleeding superolateral right gluteus medius muscle s/p kcentra
-mild anemia
-hx diarrhea with creon use prior to admission
other medical problems:
-HTN
-PVD with right BKA
-PAD
-DVT/PE with chronic anticoagulation
-mood disorder
-hypothyroidism
PLAN:
Pt with incidental pancreatic cyst on imaging
will review imaging with Dr. Maurer
per patient known cyst-- will try to obtain prior records from PCP and ? recent MRI
cont diet as tolerated
Pt currently with back pain from recent fall
monitor stool function with diarrhea prior to admission
will follow
-
-
Thank you for consultation and allowing me to participate in the patient's care. Please call the [facility] physician during the after hours with any questions or concerns.
[2024-06-26 14:54] VITALS: BP 171/81
[2024-06-26 15:00] VITALS: BP 106/45
[2024-06-26] MEDS: ROXICODONE 5 MG PO (16:27)
--- NOTE | 2024-06-26 16:39 | CM ---
Reviewed chart, met with patient to obtain information for assessment. Patient stated that she lives alone in a condo on the second floor with elevator access. She described herself as independent with her ADLs, personal care, dressing and bathing.
She has a woman who comes twice a month to help with the laundry and patient does the cooking and light cleaning.
She uses a walker to assist with her ambulation. She also has a w/c.
Patient has had VN years ago but she is unsure of what agency she had used.
She has not been to a SNF.
Patient has a prescription plan and uses, [facility] in [place].
Her PCP is, Minh Mcallister.
Patient stated that she feels she will be able to return home when stable.
Plan: Case management will continue to follow and assist with discharge planning. Tentative home.
[2024-06-26 23:05] VITALS: BP 128/56
--- NOTE | 2024-06-27 05:50 | PTCARENOTE ---
Pt slept well overnight. Pt ambulatory to bathroom with assistance with walker/ prosthesis. Pt reports Right sided ecchymosis/ hematoma pain at tolerable level, denies need for any pain medication overnight. Vital signs stable. Will continue to
monitor.
[2024-06-27] MEDS: ROXICODONE 5 MG PO ×3 (06:26→17:27)
[2024-06-27 07:00] VITALS: BP 116/53
[2024-06-27 07:18] LABS: Hematocrit 29.8 % (37.0-47.0); Hemoglobin 10.3 g/dL (12.0-16.0); Mean Corp Hgb Conc. 34.6 g/dL (33.0-37.0); Mean Corpuscular Hgb 32.2 pg (27.0-31.0); Mean Corpuscular Volume 93.1 fL (81.0-99.0); Mean Platelet Volume 10.7 fL (7.4-10.4); Platelet Count 207 10^3/uL (130-400); Red Cell Dist. Width 12.8 % (11.5-14.5); White Blood Cell Count 11.1 10^3/uL (4.8-10.8)
[2024-06-27 07:36] LABS: Blood Urea Nitrogen 25 mg/dl (7-17); Calcium 8.9 mg/dl (8.4-10.2); Carbon Dioxide 24 mmol/L (22-30); Chloride 103 mmol/L (98-107); Estimated Creatinine Clearance 31 ml/min; Glucose 110 mg/dl (70-99); Sodium 137 mmol/L (135-145); eGFR > 60.00
--- NOTE | 2024-06-27 08:40 | W.PN.HOSP.TC ---
Addendum entered and electronically signed by Sourav Anderson MD 06/27/24 13:45:
Underweight.
Yes, gluteus medius hematoma is related to/associated with/exacerbated by Eliquis use.
Original Note:
Today's Communication/Plan
-
Pain control. Monitor hemoglobin
Assessment / Plan
Assessment / Plan
Physical exam:
General: Acutely ill
HEENT: Normocephalic, Atraumatic and Moist Mucous Membranes
Respiratory: Clear to Auscultation; Negative Wheezes, Rales or Rhonchi
Cardiac: Regular Rhythm and S1/S2
GI: Soft, mild tender and Nondistended
Musculoskeletal: Tenderness of the lumbar area. Multiple bruises. Right BKA. No Clubbing, No Cyanosis and No Edema
Neuro: Awake, Alert and Oriented, no gross neuro-deficits
Psych: Calm
A/P:
Gluteus medius hematoma, after traumatic fall and on anticoagulation:
Continue hold Eliquis (last dose 06/25 morning)
Status post Kcentra in the ED
Continue monitor hemoglobin
Pain control--> needs better control.
PT OT eval--> recommended rehab versus home. Patient does not want to go to rehab.
Acute blood loss anemia:
Hemoglobin 10.3 today from 10.6 yesterday and 12.9 upon admission
Likely related to hematoma as above
Continue to monitor hemoglobin until stabilization
Blood transfusion if required
Pancreatic cystic mass:
GI consult appreciated
Hypertension:
Continue home antihypertensives, lisinopril and amlodipine.
Monitor blood pressure and adjust medications accordingly.
Polymyalgia rheumatica:
Steroids dependent
PVD:
Stable
Status post right BKA in the past with prosthesis.
DVT:
Hold anticoagulant due to hematoma
Depression anxiety:
Continue escitalopram and bupropion and buspirone
DVT prophylaxis-SCDs
CODE STATUS-full code
Anticipated Discharge: 24 - 48 hours
Subjective/Interval History
-
Date of Service: June 27, 2024
Patient pain is not well-controlled. She is afraid of using higher doses of pain medicines but encouraged her to use to get pain under control. No chest pain or shortness of breath.
Objective Data
-
Labs:
Laboratory Results
06/27/24
06:40
WBC 11.1 H
Hgb 10.3 L
Hct 29.8 L
Plt Count 207
Sodium 137
Potassium 4.0
Chloride 103
Carbon Dioxide 24
BUN 25 H
Creatinine 0.8
Glucose 110 H
Calcium 8.9
Vital Signs:
Vital Signs
Temp Pulse Resp BP Pulse Ox
98.2 F 70 16 116/53 96
06/27/24 07:00 06/27/24 07:00 06/27/24 07:00 06/27/24 07:00 06/27/24 07:00
I&O
06/26/24 06/27/24 06/28/24
06:59 06:59 06:59
Intake Total 0 / 0 420 / 420
Output Total 50 / 50
Balance -50 / -50 420 / 420
[2024-06-27] MEDS: BUSPAR 20 MG PO ×2 (09:37→20:03)
[2024-06-27] MEDS: WELLBUTRIN XL (24 hour extended release) 150 MG PO (09:38)
[2024-06-27] MEDS: LEXAPRO 20 MG PO (09:38)
[2024-06-27] MEDS: NORVASC 10 MG PO (09:38)
[2024-06-27] MEDS: TYLENOL 650 MG PO ×3 (09:43→21:20)
[2024-06-27] MEDS: ZESTRIL PO (09:58)
--- NOTE | 2024-06-27 10:54 | CM ---
Patient seen in chair, discussed PT recommendations of SNF vs VN. Patient not agreeable to rehab, also not interested in VN at this time. CM will continue to follow for all discharge planning needs.
Plan; home no needs, declining SNF and VN.
--- NOTE | 2024-06-27 11:05 | PN.CDI ---
CDI
- -
CDI:
Physician Documentation Request
Admit Date: 06/25/24 21:17
Dear Doctor Monica,
Clinical Indicators:
Patient admitted with gluteus medius hematoma; PMH includes right BKA.
Height: 5 ft 4 in
Weight:90 lbs 7 oz
06/26 note, 'CBW (06/25) 90lb 7oz BMI adj for amputation 16.3 underwt/ht. UBW reported to be 98lb.'
If possible, please provide an associated diagnosis related to the abnormal BMI, such as:
Underweight
BMI is not significant
Other, please specify
Use of terms such as suspected, likely, concern for, or probable (associated with a specific diagnosis that is being evaluated, monitored, or treated as if it exists) are acceptable and can be coded in the inpatient setting, when documented at the
time of discharge.
Thank you,
Luisana Larose RN BSN
CDI Specialist
available via tiger text
Please use your independent medical judgment in providing your response.
--- NOTE | 2024-06-27 11:09 | PN.CDI ---
CDI
- -
CDI:
Physician Documentation Request
Admit Date: 06/25/24 21:17
Dear Doctor Monica,
Clinical Indicators:
Patient admitted with gluteus medius hematoma.
Home medications include: Apixaban 5 mg tablet (Eliquis) 5 mg PO BID
06/25 Kcentra IV x 1 dose given.
06/26 PN, 'Gluteus medius hematoma, after traumatic fall and on anticoagulation:Continue hold Eliquis (last dose 06/25 morning)'
Please clarify the likely relationship between the gluteus medius hematoma & Eliquis use:
Yes, gluteus medius hematoma is related to/associated with/exacerbated by Eliquis use.
No, gluteus medius hematoma is not related to/associated with/exacerbated by Eliquis use but it is due to fall only.
Unable to determine
Use of terms such as suspected, likely, concern for, or probable (associated with a specific diagnosis that is being evaluated, monitored, or treated as if it exists) are acceptable and can be coded in the inpatient setting, when documented at the
time of discharge.
Thank you,
Luisana Larose RN BSN
CDI Specialist
available via tiger text
Please use your independent medical judgment in providing your response.
[2024-06-27 15:00] VITALS: BP 120/52
[2024-06-27 15:04] VITALS: BP 118/59; BP 124/57; PULSE 84; O2SAT 94
[2024-06-27 23:00] VITALS: BP 116/48
[2024-06-28] MEDS: TYLENOL 650 MG PO ×3 (06:13→15:14)
[2024-06-28 07:19] LABS: Hematocrit 27.7 % (37.0-47.0); Hemoglobin 9.7 g/dL (12.0-16.0)
[2024-06-28 07:44] VITALS: BP 132/59
[2024-06-28] MEDS: ROXICODONE 5 MG PO ×2 (08:13→13:30)
[2024-06-28] MEDS: LEXAPRO 20 MG PO (08:14)
[2024-06-28] MEDS: MIRALAX 17 GRAMS PO (08:14)
[2024-06-28] MEDS: NORVASC 10 MG PO (08:14)
[2024-06-28] MEDS: ZESTRIL 40 MG PO (08:14)
[2024-06-28] MEDS: WELLBUTRIN XL (24 hour extended release) 150 MG PO (09:55)
[2024-06-28] MEDS: BUSPAR 20 MG PO (09:56)
--- NOTE | 2024-06-28 11:41 | W.PN.HOSP.TC ---
Today's Communication/Plan
-
Discharge planning today.
Assessment / Plan
Assessment / Plan
Physical exam:
General: Acutely ill
HEENT: Normocephalic, Atraumatic and Moist Mucous Membranes
Respiratory: Clear to Auscultation; Negative Wheezes, Rales or Rhonchi
Cardiac: Regular Rhythm and S1/S2
GI: Soft, mild tender and Nondistended
Musculoskeletal: Tenderness of the lumbar area. Multiple bruises. Right BKA. No Clubbing, No Cyanosis and No Edema
Neuro: Awake, Alert and Oriented, no gross neuro-deficits
Psych: Calm
A/P:
Gluteus medius hematoma, after traumatic fall and on anticoagulation:
Continue hold Eliquis (last dose 06/25 morning)
Status post Kcentra in the ED
Continue monitor hemoglobin
Pain control--> it is better controlled.
PT OT eval--> recommended rehab versus home. Patient does not want to go to rehab. Also refuses VNA services.
Acute blood loss anemia:
Initial drop in hemoglobin but now hemoglobin stable over the last couple of days.
Likely related to hematoma as above
Continue to monitor hemoglobin until stabilization
Blood transfusion if required
Pancreatic cystic mass:
GI consult appreciated
She will follow-up as outpatient
Hypertension:
Continue home antihypertensives, lisinopril and amlodipine.
Monitor blood pressure and adjust medications accordingly.
Polymyalgia rheumatica:
Steroids dependent
PVD:
Stable
Status post right BKA in the past with prosthesis.
DVT:
Hold anticoagulant due to hematoma
Depression anxiety:
Continue escitalopram and bupropion and buspirone
DVT prophylaxis-SCDs
CODE STATUS-full code
Anticipated Discharge: Today
Subjective/Interval History
-
Date of Service: June 28, 2024
Patient's pain is more tolerable today. Afebrile. No signs of bleeding
Objective Data
-
Labs:
Laboratory Results
06/28/24
06:48
Hgb 9.7 L
Hct 27.7 L
Vital Signs:
Vital Signs
Temp Pulse Resp BP Pulse Ox
97.9 F 86 16 132/59 95
06/28/24 07:44 06/28/24 07:44 06/28/24 07:44 06/28/24 07:44 06/28/24 07:44
I&O
06/27/24 06/28/24 06/29/24
06:59 06:59 06:59
Intake Total 420 / 420 1260 / 1260
Balance 420 / 420 1260 / 1260
--- NOTE | 2024-06-28 11:44 | W.DCSUMMARY ---
Discharge Summary
Discharge Data
Date of Admission: 06/25/24
Date of Discharge: 06/28/24
-
Pending Results: No
Hospital Course
Patient 89 years old female with history of hypertension, PVD, right BKA, DVT/PE, hypothyroidism, migraines, came into the hospital with a mechanical fall and found to have active bleeding in superolateral right gluteus medius muscle. Patient had
Kcentra and Eliquis was held. Patient had some acute blood loss but did not require any blood transfusions. Patient also was given pain medications and adjusted to her needs. Patient did well rest of the hospital course. I discussed with general
surgery and vascular surgery and they recommended to continue conservative management and they did not needed to see her or intervene surgically. Patient also had an incidental finding of large cystic area in the pancreas for which GI was consulted
and they recommended outpatient follow-up. Otherwise, patient is hemodynamically stable and eager to go home today. PT OT saw her and recommended home versus rehab. Patient adamantly does not want rehab. She will continue to hold anticoagulation
and have follow-up CBC in discussions with PCP as outpatient over the next week or so. She will be discharged in stable condition today.
Discharge duration: 35 minutes
Discharge Plan
-
Patient Disposition: Home with Home Care
Discharge Diagnosis/Procedures: Gluteus medius hematoma related to fall and exacerbated by Eliquis use. Underweight. Acute blood loss anemia. Pancreatic cystic mass. Peripheral vascular disease.
Diet: Low Cholesterol
Activity: As tolerated
Blood Work: Please PCP to order CBC, BMP within 1 week
Referrals:
Minh Mcallister MD [Family Provider] - in less than 1 week
Prescriptions:
Continued
benazepril 40 mg Tablet
40 mg PO DAILY
bupropion HCl 150 mg Tablet Extended Release 24 Hr
150 mg PO DAILY
cholecalciferol (vitamin D3) [Vitamin D3] 25 mcg (1,000 unit) Tablet
25 mcg PO DAILY
coQ10 (ubiquinol) 100 mg Capsule
500 mg PO DAILY
aspirin 81 mg Capsule
81 mg PO HS
calcium carbonate [Oyster Shell Calcium 500] 500 mg calcium (1,250 mg) Tablet
500 mg PO DAILY Qty: 1 0RF
buspirone 5 mg tablet
20 mg PO BID
prednisone 5 mg tablet
10 mg PO DAILY
Rx Instructions:
TAKEN W/ 2MG = 12MG
ascorbic acid (vitamin C) [Vitamin C] 500 mg Tablet
500 mg PO DAILY
prednisone 1 mg tablet
2 mg PO DAILY
Rx Instructions:
TAKEN W/ 10MG = 12MG
omega 8-oxr-vrf-fish oil [Fish Oil] 1,000 mg (120 mg-180 mg) Capsule
1 cap PO DAILY
PreserVision AREDS 2,148 mcg-113 mg-45 mg-17.4mg Tablet
1 tab PO BID
amlodipine 10 mg Tablet
10 mg PO DAILY
oxycodone 5 mg Tablet
5 mg PO Q4HPRN PRN (Reason: severe pain) Qty: 15 0RF
ferrous sulfate 325 mg (65 mg iron) tablet
325 mg PO DAILY Qty: 30 0RF
escitalopram oxalate 20 mg Tablet
20 mg PO DAILY Qty: 30 0RF
Held
Eliquis 5 mg Tablet
5 mg PO BID
Hold Instructions: Resume on 07/06/24.
Discontinued
amoxicillin-pot clavulanate 875-125 mg tablet
1 tab PO BID Qty: 14 0RF
Discharge Orders:
Discharge Patient (As Directed); Ordered 06/28/24
Ordered By: Sourav Anderson
Discharge Date and Time
Discharge Date/Time: 06/28/24 16:01
Print Language: [place]
--- NOTE | 2024-06-28 12:16 | CM ---
Addendum entered by GENIA Whaley 06/28/24 14:21:
Attending updated that patient is refusing VN services.
Original Note:
Received consult for VN. Spoke with patient who stated that she does not want VN or SNF. She wants to return right home at discharge. She completed IMM. Now on chart. Confirmed address for w/c van.
Plan: Case management will continue to follow and assist with discharge planning. Home when stable.
[2024-06-28 15:00] VITALS: BP 122/49
[2024-06-28 15:56] VITALS: BP 124/58
== END 2024-06-28 16:01 | disposition home or self-care (01) | DRG 813 ==
LOC: 3 WEST ACU 21:17
PROVIDERS: Physician Assistant; ADMITTING PHYSICIAN Internal Medicine; ATTENDING PHYSICIAN Hospitalist; CONSULT PHYSICIAN Internal Medicine; EMERGENCY PHYSICIAN Emergency Medicine; FAMILY PHYSICIAN Family Medicine
PROC: 30283B1 Transfusion of Nonautologous 4-Factor Prothrombin Complex Concentrate into Vein, Percutaneous Approach (ICD-10-PCS; 2024-06-25)
DX: D68.32 Hemorrhagic disorder due to extrinsic circulating anticoagulants (principal); D62 Acute posthemorrhagic anemia; K86.2 Cyst of pancreas; Z68.1 Body mass index [BMI] 19.9 or less, adult; E03.9 Hypothyroidism, unspecified; F32.A Depression, unspecified; I10 Essential (primary) hypertension; I73.9 Peripheral vascular disease, unspecified; T45.515A Adverse effect of anticoagulants, initial encounter; S30.0XXA Contusion of lower back and pelvis, initial encounter; W01.0XXA Fall on same level from slipping, tripping and stumbling without subsequent striking against object, initial encounter; E78.00 Pure hypercholesterolemia, unspecified; F41.9 Anxiety disorder, unspecified; G43.909 Migraine, unspecified, not intractable, without status migrainosus; H91.90 Unspecified hearing loss, unspecified ear; I25.10 Atherosclerotic heart disease of native coronary artery without angina pectoris; M25.551 Pain in right hip; M54.9 Dorsalgia, unspecified; M79.601 Pain in right arm; R10.9 Unspecified abdominal pain; R63.6 Underweight; R11.0 Nausea; Z79.01 Long term (current) use of anticoagulants; Z79.52 Long term (current) use of systemic steroids; Z79.899 Other long term (current) drug therapy; Z86.711 Personal history of pulmonary embolism; Z86.718 Personal history of other venous thrombosis and embolism; Z87.891 Personal history of nicotine dependence; Z89.511 Acquired absence of right leg below knee
CPT/HCPCS: 73552; 74177; 80048; 80053; 85014; 85018; 85025; 85027; 85610; 85730; 97116; 97163; 97167; 97530; 99285; J7168; Q9967

== ENCOUNTER → 2025-06-05 13:57 | Outpatient (REF) | payer MEDICARE, OTHER, SELFPAY | LOC: HWRAD 13:57 | PROVIDERS: ATTENDING PHYSICIAN Family Medicine | DX: K86.2 Cyst of pancreas (principal) | CPT/HCPCS: 74176 ==

== ENCOUNTER 2025-07-25 09:04 | Emergency (ER) | payer MEDICARE, OTHER, SELFPAY ==
[2025-07-25 09:12] VITALS: BP 155/66
--- NOTE | 2025-07-25 11:28 | ED.GENMED ---
History of Present Illness
General
Chief Complaint: Generalized Pain
Time Seen by Provider: 07/25/25 11:19
History of Present Illness
History of Present Illness:
89-year-old female with history of hypertension, hyperlipidemia, peripheral arterial disease, right BKA, and DVT currently on Eliquis presents to the emergency department for evaluation of low back pain radiating to both legs for the past 3 days.
She occasionally gets weakness in the legs and feels as though they may give out. She has no paresthesias or radicular pain while seated however when upright or when ambulating she feels weak in the thighs. Denies urinary retention or
constipation. Also notes the pain seems to increase when having a bowel movement. Denies any associated fevers or chills. Taking Tylenol without relief. Uses a walker for ambulation at home
Past History
Past History
ED Past Medical History: HTN, Hypothyroidism, Psychiatric (Anxiety, Depression) and Other (Migraine, DVT, acute arterial occlusion, peripheral vascular disease)
ED Past Surgical History: Other (Left Thrombectomy, Right arteriogram)
Social History
Tobacco: Former smoker
Alcohol: Daily (wine 1 glass)
Personal:
Living: with family
Review of Systems
Review of Systems
Allergies reviewed?: Yes
All Other Systems: ROS reviewed and negative except as documented in HPI and ROS
Phy Exam
Physical Exam
Physical Exam:
GEN: Well appearing, NAD, WDWN
HEENT: Oral mucosa moist, no scleral icterus
Cardiac: Regular rate
Lung: No respiratory distress, no tachypnea
MSK: Status post right BKA. Mildly kyphotic posture, no midline lumbar spine tenderness. Unable to maintain fully erect spinal posture. Able to ambulate with assistance, bilateral lower extremity strength is 5 out of 5 in all avery
Skin: Good color, no pallor or jaundice, no rashes
Neuro: AO x3, moves all extremities freely
Psych: Calm, cooperative
Course
Orders/Labs/Results
Orders:
Orders
07/25/25 11:27
Acetaminophen [Tylenol] 650 mg PO NOW STA
Lidocaine [Lidocaine 4% Patch] 1 patch TOPICAL NOW STA
Apply Lidocaine patch(s) to:: lumbar spine
Oxycodone [Roxicodone] 2.5 mg PO NOW STA
07/25/25 12:31
HYDROmorphone [Dilaudid] 0.25 mg IV NOW STA
07/25/25 12:31
07/25/25 12:31
Vital Signs
Initial and Last Documented VS:
Initial Vital Signs
Temp Pulse Resp BP Pulse Ox
98.6 F 79 16 155/66 97
07/25/25 09:12 07/25/25 09:12 07/25/25 09:12 07/25/25 09:12 07/25/25 09:12
Last Documented Vital Signs
Temp Pulse Resp BP Pulse Ox
98.6 F 87 18 161/80 96
07/25/25 09:12 07/25/25 12:22 07/25/25 12:22 07/25/25 12:22 07/25/25 12:22
MDM/Problems Addressed
MDM/Problems Addressed:
Patient with nontraumatic back pain, no indication for imaging at this time. She is able to ambulate although with some discomfort. She has neurogenic claudication and bilateral symptoms highly suspicious for spinal stenosis. She was given
analgesics in the ED with mild improvement, she declines to be admitted for further pain control, recommend she follow-up with her primary care physician for MRI and further diagnostic workup
*Pulse Oximetry
SaO2: 97
Oxygen Mode of Delivery: Room air
Patient hypoxic: no
*Critical Care Note
Total Time (30-74mins, 75-104mins- exclusive of procedures): Not Applicable
ED Attending Note
-
Portions of this chart may have been created with voice recognition software.� Occasional wrong word or��sound alike� substitutions may have occurred due to the inherent limitations of voice recognition software.
Discharge Plan
Departure
Patient Disposition: Home (Routine Discharge)
Date of Disposition: 07/25/25
Time of Disposition: 12:47
Patient with high blood pressure during this ER visit?: Yes
Discharge Problem:
Low back pain
Instructions: Lumbar spinal stenosis
Prescriptions:
New
oxycodone 5 mg tablet
5 mg PO Q8H PRN (Reason: Pain) Qty: 10 0RF
No Action
benazepril 40 mg Tablet
40 mg PO DAILY
bupropion HCl 150 mg Tablet Extended Release 24 Hr
150 mg PO DAILY
cholecalciferol (vitamin D3) [Vitamin D3] 25 mcg (1,000 unit) Tablet
25 mcg PO DAILY
coQ10 (ubiquinol) 100 mg Capsule
500 mg PO DAILY
aspirin 81 mg Capsule
81 mg PO HS
calcium carbonate [Oyster Shell Calcium 500] 500 mg calcium (1,250 mg) Tablet
500 mg PO DAILY Qty: 1 0RF
buspirone 5 mg tablet
20 mg PO BID
prednisone 5 mg tablet
10 mg PO DAILY
Rx Instructions:
TAKEN W/ 2MG = 12MG
ascorbic acid (vitamin C) [Vitamin C] 500 mg Tablet
500 mg PO DAILY
prednisone 1 mg tablet
2 mg PO DAILY
Rx Instructions:
TAKEN W/ 10MG = 12MG
omega [id number] oil [Fish Oil] 1,000 mg (120 mg-180 mg) Capsule
1 cap PO DAILY
PreserVision AREDS 2,148 mcg-113 mg-45 mg-17.4mg Tablet
1 tab PO BID
amlodipine 10 mg Tablet
10 mg PO DAILY
oxycodone 5 mg Tablet
5 mg PO Q4HPRN PRN (Reason: severe pain) Qty: 15 0RF
Eliquis 5 mg Tablet
5 mg PO BID
ferrous sulfate 325 mg (65 mg iron) tablet
325 mg PO DAILY Qty: 30 0RF
escitalopram oxalate 20 mg Tablet
20 mg PO DAILY Qty: 30 0RF
Referrals:
Minh Mcallister MD [Family Provider, Family Practice]
Activity Restrictions/Additional Instructions:
See your doctor and discuss an MRI of your lower back
Interventions
Interventions:
*Risk Screen - Suicide Last Done: 07/25/25 09:12
*General Assessment Last Done: 07/25/25 09:12
*Neglect/Abuse Screening Last Done: 07/25/25 09:12
*Nursing Disposition Last Done: 07/25/25 13:19
Discharge Date and Time
Discharge Date/Time: 07/25/25 13:20
Print Language: UKRAINIAN
[2025-07-25] MEDS: ROXICODONE 2.5 MG PO (11:36)
[2025-07-25] MEDS: LIDOCAINE 4% PATCH 1 PATCH TOPICAL (11:37)
[2025-07-25 12:22] VITALS: BP 161/80
== END 2025-07-25 13:20 | disposition home or self-care (01) ==
LOC: EMR 09:04
PROVIDERS: EMERGENCY PHYSICIAN Emergency Medicine; FAMILY PHYSICIAN Family Medicine
DX: M54.50 Low back pain, unspecified (principal); I10 Essential (primary) hypertension; E78.5 Hyperlipidemia, unspecified; I73.9 Peripheral vascular disease, unspecified; E03.9 Hypothyroidism, unspecified; F41.9 Anxiety disorder, unspecified; F32.A Depression, unspecified; Z79.01 Long term (current) use of anticoagulants; Z79.82 Long term (current) use of aspirin; Z86.718 Personal history of other venous thrombosis and embolism; Z89.511 Acquired absence of right leg below knee; Z87.891 Personal history of nicotine dependence
CPT/HCPCS: 99283